=== PATIENT | female | born 1955 | race Caucasian/White ===

== ENCOUNTER 2017-07-01 07:41 | Emergency (ER) | payer OTHER ==
--- NOTE | 2017-07-01 07:58 | EDPHY ---
H & P Time Seen by Provider: 07/01/17 07:57 HPI/ROS: Chief complaint. Migraine HPI. Patient is 62 old female with history of migraines and fibromuscular dysplasia. She presents with typical headache that began this morning. She and her are visiting from [place]. She says no visual symptoms which is typical for her. She has nausea and vomiting. No recent fever, head injury, URI symptoms. No focal weakness or paresthesias. ROS Constitutional. no fever/chills, no weakness Eyes. no problems with vision ENT. no sore throat, no nasal drainage Cardiovascular. no chest pain Respiratory. no shortness of breath, no cough Abdominal. Nausea and vomiting . no problems urinating MS. no calf pain/swelling, no neck/back pain, no joint pain Skin. no rash Lymph. no swollen glands Neuro. Headache Past Medical/Surgical History: Migraines, fibro muscular dysplasia, breast cancer Social History: , nonsmoker, no alcohol Smoking Status: Never smoked Physical Exam: General Appearance: Alert well-developed female mild distress vital signs are stable Eyes: Pupils equal and round no pallor or injection. ENT, Mouth: Mucous membranes are moist. Respiratory: There are no retractions, lungs are clear to auscultation. Cardiovascular: Regular rate and rhythm. Gastrointestinal: Abdomen is soft and nontender, no masses, bowel sounds normal. Neurological: Awake and alert, sensory and motor exams grossly normal. Speech is normal. Cranial nerves are normal. No pronator drift. [id number] is intact bilaterally. Skin: Warm and dry, no rashes. Musculoskeletal: Neck is supple nontender. Extremities symmetrical, full range of motion. Psychiatric: Patient is oriented X 3, there is no agitation. Constitutional: Initial Vital Signs Temperature (C) 36.8 C 07/01/17 07:45 Heart Rate 90 07/01/17 07:45 Respiratory Rate 18 07/01/17 07:45 Blood Pressure 179/91 H 07/01/17 07:45 O2 Sat (%) 92 07/01/17 07:45 O2 Delivery Mode Room Air Allergies/Adverse Reactions: No Known Allergies Allergy (Unverified 07/01/17 07:44) Home Medications: Medication Instructions Recorded Oxycodone Ir (*) 07/01/17 Medical Decision Making Procedures: IV normal saline. Patient and I discussed treatment plan including migraine cocktail. Now she tells me she just remembers she is allergic to Imitrex and Toradol. She also tells me she does not want Benadryl as part of her medication. We discussed the reason for Benadryl however she would prefer not. does come out then and tell me that she is okay with getting Benadryl. ED Course/Re-evaluation: Serial evaluations patient is improving. She tells me her head Feels somewhat spacey After the medication. Recheck at 9:35 a.m. And she tells me that her nausea is fine but the headache is coming back. Patient is on chronic pain medication. She will be given some Dilaudid as well as Decadron IV 10 15 re-evaluation. Patient is much improved. She feels well enough to go. She is neurologically intact. Differential Diagnosis: Appears to be migraine headache. Patient has a history of migraines. She tells me this is typical. They are visiting from [place] so altitude may play some role. Patient has been hydrated. She is encouraged to return while visiting [place] and to follow up with her regular physician upon return home to [place] - Data Points Medications Given: Discontinued Medications Dexamethasone (Decadron Injection) 10 mg IVP EDNOW ONE Stop: 07/01/17 09:39 Last Admin: 07/01/17 09:45 Dose: 10 mg Diphenhydramine HCl (Benadryl Injection) 25 mg IVP EDNOW ONE Stop: 07/01/17 08:29 Last Admin: 07/01/17 08:39 Dose: 25 mg Hydromorphone HCl (Dilaudid) 1 mg IVP EDNOW ONE Stop: 07/01/17 09:39 Last Admin: 07/01/17 09:44 Dose: 1 mg Sodium Chloride (Ns) 1,000 mls @ 0 mls/hr IV EDNOW ONE; Wide Open PRN Reason: Protocol Stop: 07/01/17 08:29 Last Admin: 07/01/17 08:40 Dose: 1,000 mls Metoclopramide HCl (Reglan Injection) 10 mg IVP EDNOW ONE Stop: 07/01/17 08:29 Last Admin: 07/01/17 08:39 Dose: 10 mg Departure - Departure Disposition: Home, Routine, Self-Care Clinical Impression: Migraine headache without aura Qualifiers: Status migrainosus presence: without status migrainosus Intractability: not intractable Qualified Code(s): G43.009 - Migraine without aura, not intractable , without status migrainosus Condition: Good Instructions: Migraine Headache (ED) Additional Instructions: Drink plenty of fluids and stay hydrated while at altitude. Return for worsening symptoms. Follow up with your regular physician upon return to [place]. Referrals: CHRISTIN MORIN [Other] - As per Instructions
[2017-07-01] MEDS ORDERED: NS 1,000 ML IV ONE (08:28)
[2017-07-01] MEDS ORDERED: METOCLOPRAMIDE 10 MG/2 ML VIAL IVP ONE (08:28)
[2017-07-01] MEDS ORDERED: HYDROmorphONE/DILAUDID 2 MG/ML INJ IVP ONE (09:38)
[2017-07-01] MEDS ORDERED: DEXAMETHASONE 10 MG/ML VIAL IVP ONE (09:38)
[2017-07-01 10:28] VITALS: BP 164/80
== END 2017-07-01 10:27 | disposition home or self-care (01) ==
DX: G43.009 Migraine without aura, not intractable, without status migrainosus (principal); E86.9 Volume depletion, unspecified; Z85.3 Personal history of malignant neoplasm of breast
CPT/HCPCS: 96374; J1100; J1170; J1200; J2765